=== PATIENT | female | born 1990 | race African-American/Black ===

== ENCOUNTER 2016-09-15 10:11 | Emergency (ER) | payer OTHER ==
--- NOTE | ~2016-09-15 | EKG ---
PATIENT: MOHINDER FLOREZ UNIT #: [id number] Ventricular Rate: 59 BPM Atrial Rate: 59 BPM P-R Interval: 138 ms QRS Duration: 90 ms Q-T Interval: 424 ms QTC Calculation(Bezet): 419 ms P [place]: 64 degrees Calculated R [place]: 17 degrees Calculated T [place]: -29 degrees Diagnosis Line: Sinus bradycardia Diagnosis Line: ST and T wave abnormality, consider inferior Diagnosis Line: ischemia Diagnosis Line: Abnormal ECG T wave abnormality, consider anterior Diagnosis Line: ischemia Diagnosis Line: No previous ECGs available Diagnosis Line: Confirmed by DARCI CULLEN MD ([id number]) on 09/21/2016 Diagnosis Line: 7:59:01 PM INTERPRETING MD: ALYSE NICHOLS
--- NOTE | ~2016-09-15 | CR63 ---
[facility] RADIOLOGY TEXT RESULTS PATIENT: MOHINDER FLOREZ LOCATION: SED : [birth year] UNIT #: [id number] AGE: [address]: Carlos Lamb MD SEX: F ORDER DR: [id number] [place] [id number] MR#: [id number] Acc #: [id number] NAME: MOHINDER FLOREZ : 1990 SEX: F STUDY DATE/TIME: 09/15/2016 10:16 UNIT: SED ROOM: STUDY DESCRIPTION: CR Chest 2 View Attending Physician: Carlos Lamb M.D. Referring Physician: Carlos Lamb M.D. Ordering Physician: Carlos Lamb M.D. Primary Care Physician: Yoav ManuelPArvindRTamy MEDICAL IMAGING REPORT This report is preliminary unless electronic signature is present. EXAM Chest x-ray, 09/15 HISTORY Chest pain and shortness of air for 3 weeks. COMPARISON 04/19/2009 FINDINGS PA and lateral examination of the chest upright shows a good expansion of the parenchyma with a normal distribution of the pulmonary vascularity. There is no indication of congestion, effusion, infiltrate, tumor, or nodular density. The pleural reflections and diaphragmatic contours are normal. The cardiac silhouette and mediastinal anatomy is within normal limits. IMPRESSION Normal chest. Dictated by... Hola Shukla Jr., M.D. THIS IS AN ELECTRONICALLY VERIFIED REPORT Hola Shukla Jr., M.D. at 09/15/2016 12:31 PM ASHLEY/brendon TD: 09/15/2016 11:28 JOB #: [id number] [facility] RADIOLOGY TEXT RESULTS PATIENT: MOHINDER FLOREZ LOCATION: SED : [birth year] UNIT #: [id number] AGE: [address]: Carlos Lamb MD SEX: F ORDER DR: MEDICAL IMAGING REPORT Page 1 of 1
== END 2016-09-15 10:57 | disposition home or self-care (01) ==
LOC: SED 10:11
DX: R07.89 Other chest pain (principal); Z98.890 Other specified postprocedural states
CPT/HCPCS: 71020; 93005; 99284